=== PATIENT | female | born 1995 | race American Indian/Alaskan Native ===

== ENCOUNTER 2017-05-26 18:12 | Inpatient (IN) | payer MEDICAID ==
[2017-05-26] MEDS ORDERED: SUBLIMAZE IV PRN (22:51)
[2017-05-26] MEDS ORDERED: BRETHINE IVP PRN (22:51)
[2017-05-26] MEDS ORDERED: BICITRA PO ONE (22:53)
[2017-05-26] MEDS ORDERED: PEPCID IV ONE (22:53)
[2017-05-26] MEDS ORDERED: REGLAN IV ONE (22:53)
--- NOTE | 2017-05-26 22:58 | History and Physical Report ---
History of Present Illness Date of examination: 05/26/17 Date of admission: 05/26/17 Chief complaint: SENT FROM OFFICE History of present illness: PT HAS HAD LIMITED PNC NOT BEING SEEN IE OFFICE SINCE 30 WKS GESTATION PRESENTS TODAY FOR PRE-OP VISIT FOR SCHEDULED C/S. SHE WAS NOTED TO HAVE FHTS IN THE 170S. PT NOTED TO HAVE NORMAL BPP AND AT TIME EXCELS TO THE 170S WITH BASELINE OF 130 TO 150S. HOWEVER, WAS NOTED TO INITIALLY HAVE WHAT APPEARED TO BE SPONTANEOUS DECELS VS MARKED VARIABILITY. PT ADMITTED FOR OBSERVATION AND PREPARATION FOR C/S SHEDULED FOR 0730 IN THE AM. ALL RISK, BENEFITS AND ALTERNATIVES WERE D/W PT AND HER MOTHER. ALL QUESTIONS WERE ADDRESSED AND ANSWERED. Past History : 2 Term Births: 1 Premature Births: 0 Living Children: 1 Para: 1 # 1 Delivery date: 2015 Weeks Gestation: 40+1 Delivery type: Delivery location: [place] Infant Sex: Male weight: 7# Comments: c/s for distress Past Medical History: Reviewed history and no changes required: Negative Past Medical History Past Surgical History: Reviewed history from 07/06/2015 and no changes required: Past Medical History Anesthesia Complications: negative Anemia: negative Autoimmune Disorder: negative Bleeding Disorder: negative Blood Transfusions: negative Breast Disease: negative Diabetes: negative Heart Disease: negative Hypertension: negative Hepatitis/Liver Disease: negative Kidney Disease/UTI: negative Neurologic/Epilepsy/Migraines: negative Phlebitis/Varicosities: negative Psychiatric: negative Pulmonary Disease/Asthma: negative Thyroid Disease: negative Hospitalizations: positive Surgery (Non-fire prevention engineer): Abnormal PAP: negative DEMARCUS Exposure: negative Infertility: negative Uterine Anomaly: negative Uterine Surgery (not C/S): negative Other Gynecologic Problems: negative Family Hx: family healthy, no known health problems or Cancer Infection History Hx of STD: none HIV Risk Eval: low risk Hepatitis B Risk Eval: low risk Varicella/Chicken Pox Status: Immunized Genetic History Congenital Heart Defect: Mom: no Dad: no Lizzette Disease: Mom: no Dad: no Thalassemia Mom: no Dad: no Neural Tube Defect Mom: no Dad: no Down's Syndrome Mom: no Dad: no Russell-Sachs Mom: no Dad: no Sickle Cell Disease/Trait Mom: no Dad: no Hemophilia Mom: no Dad: no Muscular Dystrophy Mom: no Dad: no Cystic Fibrosis Mom: no Dad: no [place]ier Chorea Mom: no Dad: no Mental Retardation Mom: no Dad: no Fragile X Mom: no Dad: no Other Genetic/Chromosomal Disorder Mom: no Dad: no Child w/other defect Mom: no Dad: no Enviromental Exposures Xray Exposure: no Medication, drug, or alcohol use since LMP: no Chemical/Other Exposure: no Exposure to Cat Liter: no Hx of Parvovirus (Fifth Disease): no Occupational Exposure to Children: none Active Medications (reviewed today): PLUS 27-1 MG TABS ( VIT-FE FUMARATE-FA) 1 po Current Allergies (reviewed today): No known allergies Past History Past Medical History: no pertinent history Past Surgical History: section Family/Genetic History: none Social history: no significant social history - Obstetrical History Expected Date of Delivery: 06/01/17 Actual Gestation: 39 Week(s) 1 Day(s) : 2 Para: 1 Number of Living Children: 1 Medications and Allergies Allergies Allergy/AdvReac Type Severity Reaction Status Date / Time No Known Allergies Allergy Verified 05/26/17 23:02 Active Meds: Active Medications Fentanyl (Sublimaze) 100 mcg IV Q2H PRN PRN Reason: Labor Pain Lactated Ringer's (Lactated Ringers) 1,000 mls @ 125 mls/hr IV DIRECT ERIN Terbutaline Sulfate (Brethine) 0.25 mg IVP ONCE PRN PRN Reason: Hyperstimulation/Hypertonicity Stop: 05/26/17 22:52 Review of Systems All systems: negative - Vital Signs Vital signs: Vital Signs Pulse BP 83 126/71 05/26/17 18:51 05/26/17 18:51 Temp Pulse Resp BP Pulse Ox 83 126/71 05/26/17 18:51 05/26/17 18:51 - Physical Exam Lungs: Positive: Normal air movement Abdomen: Positive: normal appearance, soft. Negative: tenderness, guarding Genitourinary (Female): Positive: other (DEFERRED) - Obstetrical FHR: category 1 (OVER ALL), category 2 (AT TIMES DUE TO OCCASSIONAL DECELS BUT OVERALL IS CAT I) Uterine Tone Measurement Phase: Resting Results All other labs normal. Assessment and Plan - Patient Problems (1) 39 weeks gestation of Current Visit: Yes Status: Acute (2) Previous delivery affecting Current Visit: Yes Status: Acute (3) Limited care in third trimester Current Visit: Yes Status: Acute (4) NST (non-stress test) with decelerations Current Visit: Yes Status: Acute Plan to address problem: -CAT I OVERALL, HOWEVER WILL ADMIT FOR OBS AND EXTENDED MONITORING AND PLAN FOR C/S IN THE REED @ 8749 -PT AND MOTHER ARE AWARE OF PLAN OF CARE AND ALL QUESTIONS WERE ADDRESSED AND ANSWERED - WILL HOWEVER DELIVER PRIOR TO THE AM FOR OR MATERNAL INDICATIONS.
[2017-05-26] MEDS ORDERED: LACTATED RINGERS 1,000 ML IV SCH ×2 (23:00)
[2017-05-26] MEDS ORDERED: ANCEF/STERILE WATER 2 GM/20 ML 2 GM/20 ML SYRINGE IV NR (23:00)
[2017-05-26] MEDS ORDERED: PITOCin/NS 20 UNIT/1000ML DRIP 20 UNITS/1,000 ML BAG IV SCH (23:00)
[2017-05-26 23:52] LABS: Basophils % (Auto) 0.6 % (0.0-1.8); Hematocrit 27.7 % (30.3-42.9); Hemoglobin 8.3 gm/dl (10.1-14.3); Mean Corpuscular HGB Conc 30 % (30-34); Platelet Count 363 K/mm3 (140-440); Red Blood Count 4.56 M/mm3 (3.65-5.03); Red Cell Distribution Width 19.1 % (13.2-15.2); White Blood Count 11.8 K/mm3 (4.5-11.0)
[2017-05-26 23:57] LABS: Mean Corpuscular Hemoglobin 18 pg (28-32); Mean Corpuscular Volume 61 fl (79-97)
[2017-05-27] MEDS ORDERED: REGLAN ONE (04:43)
[2017-05-27] MEDS ORDERED: BICITRA ONE (04:45)
[2017-05-27] MEDS ORDERED: PEPCID IV ONE (04:47)
--- NOTE | 2017-05-27 05:35 | Event Note ---
Date: 05/27/17 Called by charge nurse to review pt tracing. Once reviewed pt currently is cat I tracing however there are periods when there is episodes of tachycardia to the 170s with return to baseline of 130s. Will proceed with delivery at this time. Consent are signed and placed on the chart. contract negotiation manager and charge nurse are aware section called for now.
[2017-05-27] MEDS ORDERED: MORPHINE ONE (05:50)
[2017-05-27] MEDS ORDERED: WATER FOR IRRIG STERILE IR ONE (06:20)
[2017-05-27] MEDS ORDERED: NACL 0.9% IR ONE (06:20)
[2017-05-27] MEDS ORDERED: TORADOL ONE (06:22)
[2017-05-27] MEDS ORDERED: NARCAN 0.4 MG/1 ML IV PRN (07:19)
[2017-05-27] MEDS ORDERED: MYLICON PO PRN (07:19)
[2017-05-27] MEDS ORDERED: MILK OF MAGNESIA PO PRN (07:19)
[2017-05-27] MEDS ORDERED: TUCKS PAD TP PRN (07:19)
[2017-05-27] MEDS ORDERED: LANSINOH TP PRN (07:19)
--- NOTE | 2017-05-27 07:24 | Operative Report ---
Operative Report Operative Report: Date of procedure: 05/27/2017 Pre-operative diagnosis: 39 weeks gestation Previous section 1 Suspicious tracing Post-operative diagnosis: Same Procedure name(s): Repeat low transverse section via Pfannenstiel skin incision Surgeon: Dr. Allen Lobby Concierge: JOHNNY Anesthesia: Epidural EBL: 500 mL Urine output: 100ml Fluids: 1L Findings: Liveborn male infant weight 5 lbs. 13 oz. Apgars of 8 and 9 at one and 5 minutes Nuchal cord 1 easily reduced Grossly normal fallopian tubes and ovaries bilaterally Indications: Patient presented term the office with an episode of tachycardia. Patient was admitted for observation normal biopsy profile was noted. Patient would have intermittent episodes of elevated heart rate lasting approximately 1-2 minutes at a time with return to baseline. Decision was made to proceed with section. Procedure: Patient was taking to the operating room. Patient was then prepped and draped in sterile fashion after anesthesia was found to be adequate. A low transverse skin incision was made with the scalpel through previous incisional scar and carried down to the underlying layer of fascia with the Bovie. The fascia was then incised in the midline and this incision was extended bilaterally with the Bovie. The superior aspect of the fascia was grasped with Seema clamps tented upward and dissected off of the anterior rectus muscles with the scalpel. In similar fashion the inferior aspect of the fascia was grasped with Seema clamps tented upward and dissected off of the anterior rectus muscles. The rectus muscles were then bluntly divided in the midline. The peritoneum was identified and entered into sharply. The bladder blade was placed. The bladder flap was not created due to adhesions of the bladder to the lower uterine segment. The bladder blade was replaced. A lower transverse uterine incision was made with the scalpel and extended bilaterally with blunt dissection. Artificial rupture of membranes was performed yielding clear amniotic fluid. The 's head was then delivered atraumatically. The anterior shoulder and rest of infant delivered without difficulty. The umbilical cord was clamped x2. The cord was cut. The infant was then placed in sterile bassinet. The cord blood not was collected. The placenta was manually extracted in its entirety. The uterus was exteriorized and cleared of all clots and debris. The uterine incision was closed using 0 Vicryl in a running locking fashion. [id number] sutures were done along the uterine incision to secure excellent hemostasis. Tisseel was placed along the uterine incision and in the subcuticular fat layer. Excellent hemostasis was noted The posterior cul-de-sac was copiously irrigated. The uterus was returned to the abdomen. The gutters were also irrigated. The anterior rectus muscles were reapproximated using 3-0 Vicryl. The anterior rectus fascia was reapproximated using 0 Vicryl in a running fashion. The subcuticular fat was reapproximated using 2-0 Vicryl in a running fashion. The skin was reapproximated with 4-0 Monocryl in a subcuticular stitch. The patient tolerated the procedure well. Sponge lap and needle counts were all correct x3. Patient was taken to the recovery room awake and in stable condition.
[2017-05-27] MEDS ORDERED: SODIUM CHLORIDE FLUSH SYRINGE 10 ML IV NR (08:00)
[2017-05-27] MEDS: D5LR 1,000 ML IV SCH ×2 (09:53→17:34)
--- NOTE | 2017-05-27 10:23 | Ultrasound Report ---
History: well being. BIOPHYSICAL PROFILE: 2 - breathing movements 2 - movements 2 - posture and tone 2 - Qualitative amniotic fluid volume 8 - TOTAL SCORE OF POSSIBLE 8 Heart Rate (bpm) 158 Gestation: Single Position: Cephalic Amniotic Fluid: BRINDA = 9.3 cm Placenta: Anterior Placental Grade: 1 Heart Rate: 158 BPM
[2017-05-27 10:47] LABS: HIV-1 Antigen p24 Non React (Non React); HIVR-1/2 Ab Non React (Non React)
[2017-05-27] MEDS ORDERED: Fluarix Quad 2017-2018(36 MOS+ IM ONE (12:00)
[2017-05-27] MEDS: TORADOL IV PRN (12:09)
[2017-05-27 18:18] LABS: Hemoglobin 7.2 gm/dl (10.1-14.3)
[2017-05-27 23:06] LABS: Hematocrit 22.7 % (30.3-42.9); Hemoglobin 6.9 gm/dl (10.1-14.3)
[2017-05-28] MEDS ORDERED: NACL 0.9% 500 ML 500 ML IV ONE (00:12)
--- NOTE | 2017-05-28 00:20 | Progress Note ---
Assessment and Plan - Patient Problems (1) Anemia Current Visit: Yes Status: Chronic Qualifiers: Anemia type: A Iron deficiency anemia type: I Vitamin B12 deficiency anemia type: V Folate deficiency anemia type: F Bone marrow failure anemia type: B Hemolytic anemia type: H Other causes of anemia: acute posthemorrhagic Chronic kidney disease stage: C Qualified Code(s): D62 - Acute posthemorrhagic anemia Plan to address problem: She has not been ambulatory yet d/t stevenson. No evidence of intraabd bleeding, vaginal bleeding appears appropriate for post C/S, however will proceed with 2u PRBC's to optiimize healing after major surgery. Subjective - Subjective Date of service: 05/28/17 Principal diagnosis: POD#1 RC/S; girl, anemia Interval history: Decreased hgb Pt w/o complaints, bleeding better, still with appropriate lochia. Patient reports: appetite normal Objective - Vital Signs Latest vital signs: Vital Signs Temp Pulse Resp BP BP Pulse Ox 05/27/17 20:50 98.0 F 71 71 H 107/61 100 05/27/17 20:01 98.0 F 78 18 100/59 99 05/27/17 18:38 98.4 F 73 18 99/60 05/27/17 15:58 98.4 F 73 18 99/60 99 05/27/17 15:50 98.4 F 86 18 99/60 97 05/27/17 10:17 100 H 23 05/27/17 08:20 97.9 F 89 20 102/46 05/27/17 08:10 108/70 100 05/27/17 08:06 67 15 108/70 100 05/27/17 08:00 64 13 110/66 98 05/27/17 07:51 67 14 111/73 100 05/27/17 07:50 66 11 L 113/79 100 05/27/17 07:40 74 13 112/72 99 05/27/17 07:36 75 13 110/72 100 05/27/17 07:30 59 L 10 L 110/67 99 05/27/17 07:21 57 L 13 111/72 100 05/27/17 07:20 12 102/61 98 05/27/17 07:16 59 L 14 108/63 99 05/27/17 07:11 57 L 16 102/61 99 05/27/17 07:10 66 15 110/63 100 05/27/17 07:06 97.6 F 65 11 L 99/51 99 05/27/17 05:34 84 98 05/27/17 05:29 79 99 05/27/17 05:24 78 99 05/27/17 05:19 84 98 05/27/17 05:14 88 98 05/27/17 05:09 82 99 05/27/17 05:04 86 98 05/27/17 04:59 76 98 05/27/17 04:54 88 98 05/27/17 04:49 76 99 05/27/17 04:38 81 97 Intake and Output 05/27/17 05/27/17 05/28/17 14:59 22:59 06:59 Intake Total 500 1200.417 360 Output Total 325 Balance 175 1200.417 360 Intake: IV 500 960.417 D5lr 1,000 ml @ 125 mls/ 960.417 hr IV DIRECT ERIN Rx#: [id number] Oral 240 360 Output: Urine 325 Other: Total, Intake Amount 240 360 Estimated Blood Loss 500 - Exam Abdomen: Present: normal appearance, normal bowel sounds - Labs Labs: Abnormal lab results 05/27/17 05/27/17 Range/Units 17:33 22:40 Hgb 7.2 L 6.9 L (10.1-14.3) gm/dl Hct 23.0 L 22.7 L (30.3-42.9) %
[2017-05-28] MEDS: TORADOL IV PRN (01:55)
[2017-05-28] MEDS: NORCO 5/325 PO PRN ×2 (01:56→16:36)
[2017-05-28] MEDS ORDERED: BENADRYL PO ONE (02:54)
[2017-05-28] MEDS ORDERED: TYLENOL PO ONE (02:55)
[2017-05-28] MEDS ORDERED: BOOSTRIX IM ONE (07:20)
--- NOTE | 2017-05-28 09:51 | Progress Note ---
Assessment and Plan POD#2 RC/S; girl, anemia, s/p 2uPRBCs - Patient Problems (1) delivery delivered Current Visit: Yes Status: Acute Plan to address problem: Continue post c/s pathwau Possible c/s tomorrow (2) Single live Current Visit: Yes Status: Acute (3) Anemia Current Visit: Yes Status: Chronic Qualifiers: Anemia type: A Iron deficiency anemia type: I Vitamin B12 deficiency anemia type: V Folate deficiency anemia type: F Bone marrow failure anemia type: B Hemolytic anemia type: H Other causes of anemia: acute posthemorrhagic Chronic kidney disease stage: C Qualified Code(s): D62 - Acute posthemorrhagic anemia Plan to address problem: s/p 2u PRBC, h/h pending Subjective - Subjective Date of service: 05/28/17 Principal diagnosis: POD#2 RC/S; girl, anemia Interval history: Pt w/o complaints, bleeding better, still with appropriate lochia. Patient reports: appetite normal, voiding normally, pain well controlled, flatus , ambulating normally Objective - Vital Signs Latest vital signs: Vital Signs Temp Pulse Resp BP BP Pulse Ox 05/28/17 09:36 98.2 F 70 18 106/60 05/28/17 09:15 98.4 F 84 18 107/56 05/28/17 08:45 98.3 F 64 18 99/59 05/28/17 08:11 98.4 F 68 18 110/63 05/28/17 07:45 98.2 F 80 18 113/60 05/28/17 07:30 98.5 F 80 18 111/60 05/28/17 07:20 98 F 72 18 97/48 05/28/17 06:30 98.8 F 78 16 98/54 05/28/17 06:01 84 97 05/28/17 06:00 98.4 F 82 16 108/60 05/28/17 05:56 97 H 97 05/28/17 05:30 98.8 F 95 H 18 103/50 05/28/17 05:00 98.6 F 79 18 104/59 05/28/17 04:30 98.6 F 69 16 117/69 98 05/28/17 04:29 98.1 F 78 16 104/59 05/28/17 04:00 98.6 F 69 16 117/69 05/28/17 03:45 98.6 F 74 18 95/50 05/28/17 03:16 18 05/28/17 02:25 18 05/28/17 01:56 18 05/28/17 01:55 18 05/27/17 23:47 98.2 F 84 18 105/61 99 05/27/17 20:50 98.0 F 71 71 H 107/61 100 05/27/17 20:01 98.0 F 78 18 100/59 99 05/27/17 18:38 98.4 F 73 18 99/60 05/27/17 15:58 98.4 F 73 18 99/60 99 05/27/17 15:50 98.4 F 86 18 99/60 97 05/27/17 10:17 100 H 23 Intake and Output 05/27/17 05/28/17 05/28/17 22:59 06:59 14:59 Intake Total 1200.417 600 250 Output Total 2600 Balance 1200.417 -2000 250 Intake: IV 960.417 D5lr 1,000 ml @ 125 mls/ 960.417 hr IV DIRECT ERIN Rx#: [id number] Oral 240 600 Blood Product 0 250 Leukoreduced Red Blood 0 Cells Unit [id number] Leukoreduced Red Blood 0 250 Cells Unit [id number] Output: Urine 2600 Indwelling Catheter 2600 Other: Total, Intake Amount 240 240 Total, Output Amount 1000 # Voids Indwelling Catheter 1 - Exam Breasts: Present: normal. Absent: discharge, engorged Cardiovascular: Present: Regular rate Lungs: Present: Normal air movement Abdomen: Present: normal appearance, soft Uterus: Present: fundal height below umbilicus Extremities: Present: normal, edema (trace) Incision: Present: dressed - Labs Labs: Abnormal lab results 05/26/17 05/27/17 05/27/17 Range/Units 23:25 17:33 22:40 Hgb 7.2 L 6.9 L (10.1-14.3) gm/dl Hct 23.0 L 22.7 L (30.3-42.9) % Crossmatch See Detail
[2017-05-28] MEDS: FEOSOL PO SCH ×2 (11:46→23:39)
[2017-05-28] MEDS: COLACE PO SCH (11:46)
[2017-05-28] MEDS: MOTRIN PO PRN ×3 (11:46→23:38)
[2017-05-28 12:25] LABS: Hematocrit 28.3 % (30.3-42.9); Hemoglobin 8.7 gm/dl (10.1-14.3)
[2017-05-29] MEDS: MOTRIN PO PRN ×2 (06:10→13:50)
--- NOTE | 2017-05-29 06:26 | Discharge Summary ---
Providers - Providers Date of Admission: 05/27/17 05:03 Date of discharge: 05/30/17 (pt req d/c in early AM) Attending physician: PETER OLIVEROS Primary care physician: PETER OLIVEROS Hospitalization Reason for admission: section Delivery: Procedure: repeat low transverse Episiotomy: none Laceration: none Incision: normal, dry, intact Other procedures: none complications: none Discharge diagnosis: IUP at term delivered [place] baby: female Hospital course: uncomplicated section Pt w/o complaint VSS FF below umb Lochia scant Incision D&I H&H post transfusion 03/27 Pt states she feels much better after transfusion. Doing well s /p section P: d/c in AM Instructions given Pt will RTO 1 week postop. Condition at discharge: Good Disposition: DC-01 TO HOME OR SELFCARE - Discharge Diagnoses (1) delivery delivered Status: Acute Comment: rto 1 week postop care Plan - Discharge Medications Prescriptions: Docusate Sodium [Colace] 100 mg PO BID PRN #60 capsule PRN Reason: Constipation Docusate Sodium [Colace] 100 mg PO BID PRN #60 capsule PRN Reason: Constipation Ferrous Sulfate [Feosol 325 MG tab] 325 mg PO BID #60 tablet Ibuprofen [Motrin 800 MG tab] 800 mg PO Q8HR PRN #30 tablet PRN Reason: Pain Lidocain2.5%/Prilocai2.5% [Emla] 5 gm TP PRN #1 tube oxyCODONE /ACETAMINOPHEN [Percocet 5/325] 1 tab PO Q4HR #30 tab - Provider Discharge Summary Activity: routine, no sex for 6 weeks, no heavy lifting 4 weeks, no strenuous exercise Diet: routine Instructions: routine Additional instructions: [] Smoking cessation referral if applicable(refer to patient education folder for contact #) [] Refer to [facility] Booklet Call your doctor immediately for: * Fever > 100.5 * Heavy vaginal bleeding ( >1 pad per hour) * Severe persistent headache * Shortness of breath * Reddened, hot, painful area to leg or breast * Drainage or odor from incision. * Keep incision clean and dry at all times and follow doctor's instructions regarding bathing/showering - Follow up plan Follow up: PETER OLIVEROS MD [Primary Care Provider] - 7 Days (Congratulations! Please call [phone] to schedule your postoperative visit in 1 week. Take medications as prescribed. Call with any concerns. )
[2017-05-29] MEDS: COLACE PO SCH (13:50)
[2017-05-29] MEDS: FEOSOL PO SCH ×2 (13:50→21:47)
[2017-05-30] MEDS: NORCO 5/325 PO PRN (07:07)
[2017-05-30] MEDS: FEOSOL PO SCH (10:38)
[2017-05-30] MEDS: COLACE PO SCH (10:39)
[2017-05-30 18:43] VITALS: BP 120/80
== END 2017-05-30 17:45 | disposition home or self-care (01) | DRG 766 ==
LOC: TRG 18:12 → LD 18:12 → TRG 05-27 05:02 → LD 05-27 05:03 → OB 05-27 08:52
PROVIDERS: ADMIT Obstetrics & Gynecology; ATTEND Obstetrics & Gynecology
PROC: 10D00Z1 Extraction of Products of Conception, Low, Open Approach (ICD-10-PCS; principal; 2017-05-27)
PROC: 10907ZC Drainage of Amniotic Fluid, Therapeutic from Products of Conception, Via Natural or Artificial Opening (ICD-10-PCS; 2017-05-27)
PROC: 30233N1 Transfusion of Nonautologous Red Blood Cells into Peripheral Vein, Percutaneous Approach (ICD-10-PCS; 2017-05-28)
DX: O34.211 Maternal care for low transverse scar from previous cesarean delivery (principal); O69.81X0 Labor and delivery complicated by cord around neck, without compression, not applicable or unspecified; O76 Abnormality in fetal heart rate and rhythm complicating labor and delivery; O99.02 Anemia complicating childbirth; D64.9 Anemia, unspecified; Z3A.39 39 weeks gestation of pregnancy; Z37.0 Single live birth
CPT/HCPCS: 36415; 76815; 76819; 85014; 85018; 85025; 86592; 86850; 86900; 86901; 86920; 87806; 88307; 90686; 99211; C9250; G0463; J0690; J1885; J2270; J2590; J2765; J7040; J7120; J7121; P9016